=== PATIENT | female | born 1950 | race Caucasian/White ===

== ENCOUNTER 2023-03-17 10:17 | Outpatient (CLI) | payer MEDICARE, OTHER | END 2023-03-17 10:18 | disposition home or self-care (01) | LOC: CSHLAB 10:17 | PROVIDERS: ATTEND Obstetrics & Gynecology | DX: Z01.818 Encounter for other preprocedural examination (principal) | CPT/HCPCS: 85027; 86850; 86900; 86901; 93005; 93010 ==

== ENCOUNTER 2023-03-23 09:47 | Day surgery (SDC) | payer MEDICARE, OTHER ==
[2023-03-17 12:50] LABS: Hemoglobin 13.7 g/dL (12.0-15.5); Mean Corpuscular HGB CONC 32.7 g/dL (32.0-36.0); Mean Corpuscular Hemoglobin 32.4 pg (27.0-33.0); Mean Corpuscular Volume 99.1 fl (81.6-98.3); Platelet Count 231 10x3/uL (150-450); RBC Distribution Width 13.2 % (11.5-14.5); Red Blood Cell (RBC) Count 4.23 10x6/uL (3.90-5.03); White Blood Cell (WBC) Count 6.4 10x3/uL (3.5-10.5)
[2023-03-22 11:47] VITALS: BMI 36.0
[2023-03-23] MEDS ORDERED: CeleCOXIB 100 MG CAP ONE (10:16)
[2023-03-23] MEDS ORDERED: CEFAZOLIN 2 GM VIAL ONE (11:11)
[2023-03-23] MEDS ORDERED: Ondansetron PF 4 MG/2 ML Vial ONE ×2 (11:13→11:30)
[2023-03-23] MEDS ORDERED: Ketorolac Tromethamine 30 MG/ML VIAL ONE (11:13)
[2023-03-23] MEDS ORDERED: Dexamethasone 4 mg/ml Vial ONE ×2 (11:13→11:30)
[2023-03-23] MEDS ORDERED: Fentanyl 100 MCG/2 ML VIAL ONE (11:13)
== END 2023-03-23 13:30 | disposition home or self-care (01) ==
LOC: CSHSDC 09:47
PROVIDERS: ATTEND Obstetrics & Gynecology
PROC: 0UB98ZZ Excision of Uterus, Via Natural or Artificial Opening Endoscopic (ICD-10-PCS; principal; 2023-03-23)
DX: N84.0 Polyp of corpus uteri (principal); I10 Essential (primary) hypertension; Z88.1 Allergy status to other antibiotic agents; Z79.899 Other long term (current) drug therapy
CPT/HCPCS: 85027; 86850; 86900; 86901; 88305; J1100; J1885; J2405; J3010